=== PATIENT | male | born 1995 | race Caucasian/White ===

== ENCOUNTER 2018-01-15 20:47 | Emergency (ER) | payer OTHER ==
--- NOTE | 2018-01-15 21:10 | PDOC ---
Rapid Medical Evaluation Time Seen by Provider: 01/15/18 21:08 Medical Evaluation: 01/15/18 21:08 I have performed a brief in-person evaluation of this patient. The patient presents with a chief complaint of: abscess, went to [facility] in [place] was given antibiotics with no improvement Pertinent physical exam findings: abscess to R axillae I have ordered the following: nothing The patient will proceed to the ED for further evaluation. Discharge Disposition - Diagnosis Abscess - Referrals - Patient Instructions - Post Discharge Activity
[2018-01-15 21:13] VITALS: BP 118/56; PULSE 86; TEMP 97.7; BMI 23.6
[2018-01-15] MEDS ORDERED: IBUPROFEN 600 MG TABLET (FP) PO ONE (22:52)
--- NOTE | 2018-01-15 22:55 | PDOC ---
History of Present Illness - General Chief Complaint: Wound Stated Complaint: CYST UNDER ARMPIT Time Seen by Provider: 01/15/18 21:08 History Source: Patient Exam Limitations: No Limitations - History of Present Illness Initial Comments: 01/15/18 22:56 22-year-old male without significant past medical history presents emergency Department with abscess to his right armpit. Patient states he's had multiple abscesses in the past most recently having 2 other abscesses in his right axilla. He denies fevers, chills, redness, streaking. Past History - Past Medical History Allergies/Adverse Reactions: Allergies Allergy/AdvReac Type Severity Reaction Status Date / Time No Known Allergies Allergy Verified 01/15/18 21:13 Home Medications: Ambulatory Orders Ampicillin Trihydrate 500 mg PO ASDIR 01/15/18 Sulfamethoxazole/Trimethoprim [Bactrim Ds -] 1 tab PO BID #14 tablet 01/15/18 COPD: No - Suicide/Smoking/Psychosocial Hx Smoking History: Never smoked Have you smoked in the past 12 months: No Information on smoking cessation initiated: No Hx Alcohol Use: No Drug/Substance Use Hx: No Substance Use Type: None Review of Systems - Review of Systems Able to Perform ROS?: Yes Is the patient limited Haitian proficient: No Constitutional: No: Symptoms Reported HEENTM: No: Symptoms Reported Respiratory: No: Symptoms reported Cardiac (ROS): No: Symptoms Reported ABD/GI: No: Symptoms Reported : No: Symptoms Reported Musculoskeletal: No: Symptoms Reported Integumentary: Yes: See HPI Neurological: No: Symptoms reported Endocrine: No: Symptoms Reported Hematologic/Lymphatic: No: Symptoms Reported *Physical Exam - Vital Signs Last Vital Signs Temp Pulse Resp BP Pulse Ox 97.7 F 86 16 118/56 100 01/15/18 21:10 01/15/18 21:10 01/15/18 21:10 01/15/18 21:10 01/15/18 21:10 - Physical Exam General Appearance: Yes: Appropriately Dressed. No: Apparent Distress HEENT: positive: Normal ENT Inspection Neck: positive: Trachea midline, Supple Respiratory/Chest: positive: Lungs Clear, Normal Breath Sounds. negative: Respiratory Distress, Accessory Muscle Use Cardiovascular: positive: Regular Rhythm, Regular Rate. negative: Murmur Gastrointestinal/Abdominal: positive: Normal Bowel Sounds, Soft. negative: Tender Musculoskeletal: positive: Normal Inspection. negative: CVA Tenderness Extremity: positive: Normal Capillary Refill, Normal Inspection Integumentary: positive: Other (2 cm x 3 cm ovoid fluctuant pustule in the right axilla. 2 other healing abscesses noted to the right axilla also.) Neurologic: positive: Alert, Normal Response, Motor Strength 5/5 Procedures - Consent Consent obtained: Verbal, From Patient - Incision and Drainage I&D Site: Right: Axilla Betadine cleansed: Yes Anesthesia: 1% Lidocaine Volume(ml): 4 Blade Size: 11 Attempts: 1 Plain Packing: No Complications: none Dressing: Yes Progress: 01/15/18 22:59 Patient tolerated well Medical Decision Making - Medical Decision Making 01/15/18 22:59 A/P: 22-year-old male with past medical history with right axillary abscess 2 cm x 3 cm ovoid fluctuant pustule noted to mid axilla on the right side. No palpable lymph nodes in the axilla. 2 other healing abscesses noted superior to current lesion No erythema or streaking present Abscess I and D see procedure note wound culture Given patient has had multiple abscesses in the past I will treat with Bactrim as an outpatient to cover for MRSA. *DC/Admit/Observation/Transfer Diagnosis at time of Disposition: Abscess - Discharge Dispostion Disposition: HOME Condition at time of disposition: Stable Admit: No - Prescriptions Prescriptions: Sulfamethoxazole/Trimethoprim [Bactrim Ds -] 1 tab PO BID #14 tablet - Referrals Referrals: Pippa Kirby MD [Primary Care Provider] - - Patient Instructions Additional Instructions: Rest, keep area elevated. Avoid strenuous activity or exercise until wound is healed Use hot soaks to area to bring more blood to the surface and encourage drainage May change dressings as needed to keep clean - trying to avoid removal of packing for 2 days. May use Tylenol or Motrin for mild pain relief Use stronger medications as directed and prescribed Continue all medications as prescribed Followup with private physician in 2-3 days for wound check Return to emergency Department for worsening swelling, pain, redness, fevers as needed - Post Discharge Activity
== END 2018-01-15 22:56 | disposition home or self-care (01) ==
LOC: JERFT 20:47
PROC: 0X940ZZ Drainage of Right Axilla, Open Approach (ICD-10-PCS; principal; 2018-01-15)
DX: L02.411 Cutaneous abscess of right axilla (principal)
CPT/HCPCS: 87070; 87186; 87205; 99281-25

== ENCOUNTER 2018-11-05 15:55 | Emergency (ER) | payer OTHER ==
[2018-11-05 16:21] VITALS: BP 120/86; PULSE 104; TEMP 98; BMI 25.9
--- NOTE | 2018-11-05 16:21 | PDOC ---
Rapid Medical Evaluation Time Seen by Provider: 11/05/18 16:19 Medical Evaluation: Allergies Allergy/AdvReac Type Severity Reaction Status Date / Time No Known Allergies Allergy Verified 11/05/18 16:17 11/05/18 16:20 I performed a brief in-person evaluation of this patient. Chief complaint: Abd pain, vomiting, diarrhea. Symptoms reminiscent of prior amoeba infection 3 yrs ago (no travel this time) Pertinent physical exam findings: Well-hydrated. No focal tenderness. I have ordered the following: Labs. Patient will proceed to the ED for further evaluation. Discharge Disposition - Diagnosis Nausea & vomiting, Diarrhea Abdominal pain Qualifiers: Abdominal location: generalized Qualified Code(s): R10.84 - Generalized abdominal pain - Referrals - Patient Instructions - Post Discharge Activity
[2018-11-05 16:43] LABS: BASO % 0.3 % (0-2.0); EOS % 1.3 % (0-4.5); HEMATOCRIT 43.3 % (35.4-49); HEMOGLOBIN 15.1 GM/dL (11.7-16.9); LYMPH % 23.6 % (8-40); MCH 29.7 pg (25.7-33.7); MCHC 34.9 g/dl (32.0-35.9); MEAN CELL VOLUME 85.2 fl (80-96); MEAN PLT VOLUME 8.5 fl (7.5-11.1); MONO % 12.7 % (3.8-10.2); NEUT % 62.1 % (42.8-82.8); PLATELET COUNT 169 K/MM3 (134-434); RBC 5.09 M/mm3 (4.00-5.60); RDW 13.2 % (11.9-15.9); WHITE BLOOD COUNT 3.9 K/mm3 (4.0-10.0)
[2018-11-05 17:02] LABS: ALBUMIN 4.5 g/dl (3.4-5.0); ALK PHOS 65 U/L (45-117); ANION GAP 4 MMOL/L (8-16); BILIRUBIN,TOTAL 0.6 mg/dL (0.2-1); BLOOD UREA NITROGEN 10 mg/dL (7-18); CALCIUM 8.9 mg/dL (8.5-10.1); CHLORIDE 104 mmol/L (98-107); CO2 30 mmol/L (21-32); GLUCOSE,RANDOM 89 mg/dL (74-106); LIPASE 137 U/L (73-393); SGOT/AST 20 U/L (15-37); SGPT/ALT 46 U/L (13-61); SODIUM 139 mmol/L (136-145); TOT PROT 7.6 g/dl (6.4-8.2)
[2018-11-05 17:02] LABS: URINE APPEARANCE CLEAR; URINE BILIRUBIN NEGATIVE (<2.0 mg/dL); URINE COLOR LTYELLOW; URINE GLUCOSE (UA) NEGATIVE (NEGATIVE); URINE KETONE NEGATIVE (NEGATIVE); URINE LEUK ESTERASE NEGATIVE (NEGATIVE); URINE NITRITE NEGATIVE (NEGATIVE); URINE PROTEIN NEGATIVE (NEGATIVE)
--- NOTE | 2018-11-05 17:59 | PDOC ---
History of Present Illness - General Chief Complaint: Pain, Acute Stated Complaint: ABDOMINAL PAIN/VOMITING Time Seen by Provider: 11/05/18 16:19 - History of Present Illness Initial Comments: The patient is a 23M w/ no reported PMH who presents for 2d of watery diarrhea w / associated periumbilical abdominal pain. Pain is described as 'pinching', intermittent, worsened w/ food, and not alleviated by anything he can identify. Denies blood in stool. Denies vomiting, chest pain, SOB, dysuria, hematuria, penile discharge, or change in sensation. 11/05/18 19:48 Past History - Past Medical History Allergies/Adverse Reactions: Allergies Allergy/AdvReac Type Severity Reaction Status Date / Time No Known Allergies Allergy Verified 11/05/18 16:17 Home Medications: Ambulatory Orders NK [No Known Home Medication] 11/05/18 COPD: No Other medical history: "ameoba sickness when in [place] a couple of yrs ago" - Suicide/Smoking/Psychosocial Hx Smoking History: Never smoked Have you smoked in the past 12 months: No Hx Alcohol Use: No Drug/Substance Use Hx: No Substance Use Type: None *Physical Exam - Vital Signs Last Vital Signs Temp Pulse Resp BP Pulse Ox 98 F 104 H 18 120/86 100 11/05/18 16:19 11/05/18 16:19 11/05/18 16:19 11/05/18 16:19 11/05/18 16:19 Moderate Sedation - Procedure Monitoring Vital Signs: Procedure Monitoring Vital Signs Temperature 98 F 11/05/18 16:19 Pulse Rate 104 H 11/05/18 16:19 Respiratory Rate 18 11/05/18 16:19 Blood Pressure 120/86 11/05/18 16:19 O2 Sat by Pulse Oximetry (%) 100 11/05/18 16:19 ED Treatment Course - LABORATORY CBC & Chemistry Diagram: 11/05/18 16:26 11/05/18 16:26 - ADDITIONAL ORDERS Additional order review: Laboratory Results 11/05/18 11/05/18 16:30 16:26 Sodium 139 Potassium 4.0 Chloride 104 Carbon Dioxide 30 Anion Gap 4 L BUN 10 Creatinine 1.0 Creat Clearance w eGFR > 60 Random Glucose 89 Calcium 8.9 Total Bilirubin 0.6 AST 20 ALT 46 Alkaline Phosphatase 65 Total Protein 7.6 Albumin 4.5 Lipase 137 Urine Color Ltyellow Urine Appearance Clear Urine pH 9.0 H Ur Specific [place] 1.014 Urine Protein Negative Urine Glucose (UA) Negative Urine Ketones Negative Urine Blood Negative Urine Nitrite Negative Urine Bilirubin Negative Urine Urobilinogen 2.0 Ur Leukocyte Esterase Negative 11/05/18 16:26 RBC 5.09 MCV 85.2 MCHC 34.9 RDW 13.2 MPV 8.5 Neutrophils % 62.1 Lymphocytes % 23.6 Monocytes % 12.7 H Eosinophils % 1.3 Basophils % 0.3 *DC/Admit/Observation/Transfer Diagnosis at time of Disposition: Abdominal pain Qualifiers: Abdominal location: generalized Qualified Code(s): R10.84 - Generalized abdominal pain Diarrhea Qualifiers: Diarrhea type: unspecified type Qualified Code(s): R19.7 - Diarrhea, unspecified - Discharge Dispostion Disposition: HOME Condition at time of disposition: Stable Decision to Admit order: No - Referrals Referrals: [facility] [place] [[place] Group] - Patient Instructions Printed Discharge Instructions: DI for Diarrhea and Traveler's Diarrhea -- Adult Additional Instructions: You were seen in the Emergency Department for evaluation of diarrhea. Your laboratory work was within normal limits and you did not have evidence of a urinary tract infection. Review the handout provided at discharge. Follow up with you primary care provider/referral. Return to the Emergency Department if you develop fevers, vomiting, persistent/worsening symptoms, or any new/ concerning symptoms. - Post Discharge Activity Forms/Work/School Notes: Back to Work
--- NOTE | 2018-11-05 20:01 | PDOC ---
Attending Attestation - Resident Resident Name: Doug Carrillo - ED Attending Attestation I have performed the following: I have examined & evaluated the patient, The case was reviewed & discussed with the resident, I agree w/resident's findings & plan, Exceptions are as noted - Physicial Exam PE: 11/05/18 20:06 GENERAL: Well-appearing, well-nourished. No apparent distress. HEENT: Normocephalic, atraumatic. PERRL, EOM intact, MMM. CARDIOVASCULAR: Normal S1, S2. Regular rate and rhythm. PULMONARY: Clear to auscultation bilaterally. ABDOMEN: Soft, non-distended, non-tender. EXTREMITIES: Normal ROM in all four extremities. No gross deformities. SKIN: Warm, dry. No rash NEUROLOGICAL: No focal neurological deficits. - Medical Decision Making 11/05/18 20:07 Well appearing young man with report of frequent episodes of watery diarrhea for a day. No blood, no vomiting, tolerating PO, keeping up with fluids Likely acute viral enteritis instructed to aggressively hydrate return instructions safe for dc <Don Monreal - Last Filed: 11/05/18 20:05> - HPI HPI: 11/05/18 20:17 The patient is a 23 year old male with no significant past medical history who reports to the ED complaining of 2 days of watery diarrhea (seven episodes) accompanied by periumbilical abdominal pain, and nausea without vomiting. The patient states he recently ate unwashed chicken and shortly after began experiencing these symptoms. The patient denies fever, chills, or nausea. Patient denies any urinary symptoms. Allergies: NKA <Randall Nieto - Last Filed: 11/05/18 20:20> Attestations - Attestations 11/05/18 20:20 Documentation prepared by Randall Nieto, acting as medical device sales consultant for Don Monreal MD. <Randall Nieto - Last Filed: 11/05/18 20:20>
== END 2018-11-05 20:19 | disposition home or self-care (01) ==
LOC: JER 15:55
DX: R10.84 Generalized abdominal pain (principal); R19.7 Diarrhea, unspecified
CPT/HCPCS: 36415; 80053; 81003; 83690; 85025; 99282-25

== ENCOUNTER 2019-11-19 18:50 | Emergency (ER) | payer OTHER ==
[2019-11-19 19:05] VITALS: BP 131/62; PULSE 101; TEMP 98.3; BMI 25.9
[2019-11-19] MEDS ORDERED: KETOROLAC TROMETHAMINE 60 MG/2 ML VIAL IM ONE (19:21)
--- NOTE | 2019-11-19 19:21 | PDOC ---
History of Present Illness - General Chief Complaint: Toothache Stated Complaint: TOOTHACHE Time Seen by Provider: 11/19/19 19:06 History Source: Patient - History of Present Illness Timing/Duration: other Past History - Past Medical History Allergies/Adverse Reactions: Allergies Allergy/AdvReac Type Severity Reaction Status Date / Time No Known Allergies Allergy Verified 11/19/19 19:02 Home Medications: Ambulatory Orders Clindamycin [Cleocin -] 300 mg PO Q6HPO #28 capsule 11/19/19 Ibuprofen [Motrin -] 800 mg PO Q6H #30 tablet 11/19/19 COPD: No - Psycho Social/Smoking Cessation Hx Smoking History: Never smoked Have you smoked in the past 12 months: No Hx Alcohol Use: No Drug/Substance Use Hx: No Substance Use Type: None Review of Systems - Review of Systems Constitutional: No: Chills, Fever Neurological: No: Headache *Physical Exam - Vital Signs Last Vital Signs Temp Pulse Resp BP Pulse Ox 98.3 F 101 H 18 131/62 98 11/19/19 19:00 11/19/19 19:00 11/19/19 19:00 11/19/19 19:00 11/19/19 19:00 - Physical Exam General Appearance: Yes: Mild Distress. No: Appropriately Dressed HEENT: positive: Normal Voice, Other (moderate R sided facial swelling w/ ttp to R upper 1st molar, no obvious discharge) Neck: negative: Lymphadenopathy (R), Lymphadenopathy (L) Respiratory/Chest: negative: Respiratory Distress Integumentary: positive: Dry, Warm Neurologic: positive: Fully Oriented, Alert, Normal Mood/Affect Medical Decision Making - Medical Decision Making 11/19/19 19:32 4-year-old female no significant history here with right upper molar pain since yesterday and has since noticed right facial swelling. No discharge, fever or chills. Last time he went to the dentist was a year or 2 ago where he had a right lower tooth root canal in the [place] see exam Possible dental abscess Afebrile Dose of toradol given here Called urgent care dental clinic in [place] who sates they will be able to see pt tonight Discharge - Discharge Information Problems reviewed: Yes Clinical Impression/Diagnosis: Pain, dental, Facial swelling Condition: Good Disposition: HOME - Additional Discharge Information Prescriptions: Clindamycin [Cleocin -] 300 mg PO Q6HPO #28 capsule Ibuprofen [Motrin -] 800 mg PO Q6H #30 tablet - Follow up/Referral - Patient Discharge Instructions Patient Printed Discharge Instructions: DI for Dental Pain Additional Instructions: Please report immediately to: [facility] [address] [place] [id number] If they do not accept your insurance, start taking antibiotics and motrin as directed and follow-up in dental clinic at [facility] tomorrow at: Located in: [facility] Address: [address] [place] [id number] Hours: Friday 9AM4PM Friday 9AM4PM Friday 9AM4PM Friday 9AM4PM Friday 9AM4PM Friday 9AM4PM 9AM4PM You can also follow-up at [facility] dental clinic at: [phone] Return to ED as needed - Post Discharge Activity
[2019-11-19] MEDS ORDERED: KETOROLAC TROMETHAMINE 60 MG/2 ML VIAL ONE (19:38)
== END 2019-11-19 19:42 | disposition home or self-care (01) ==
LOC: JERFT 18:50
PROC: 3E0233Z Introduction of Anti-inflammatory into Muscle, Percutaneous Approach (ICD-10-PCS; principal; 2019-11-19)
DX: K08.89 Other specified disorders of teeth and supporting structures (principal)
CPT/HCPCS: 99281-25